=== PATIENT | male | born 1995 | race Hispanic/Latino ===

== ENCOUNTER 2021-04-24 01:06 | Emergency (ER) | payer SELFPAY ==
[2021-04-24] MEDS ORDERED: diphenhydrAMINE 50 MG/ML VIAL ONE (01:15)
[2021-04-24] MEDS ORDERED: Prochlorperazine 10 MG/2 ML VIAL ONE (01:15)
== END 2021-04-24 02:00 ==
LOC: MADERS 01:06
DX: R11.2 Nausea with vomiting, unspecified (principal); R42 Dizziness and giddiness
CPT/HCPCS: 96372; 99283; J0780; J1200